=== PATIENT | female | born 1990 | race Caucasian/White ===

== ENCOUNTER 2016-03-26 02:18 | Emergency (ER) | payer OTHER, MEDICAID ==
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
--- NOTE | 2016-03-26 05:25 | EDDOCDS ---
Physician Documentation [facility] Name: Laura Brandon Age: 26 yrs Sex: Female : 1990 Arrival Date: 03/26/2016 Time: 02:18 Bed 7 Private MD: Disposition: 03/26/16 05:02 Discharged to Home/Self Care. Impression: Contusion of unspecified part of head. - Condition is Stable. - Discharge Instructions: Contusion, [id number]. - Medication Reconciliation, Local Pharmacy Hours, Work Release Form - 1 day form. - Follow up: Private Physician; When: Call to arrange an appointment; Reason: Recheck today's complaints. - Problem is new. - Symptoms have improved. Historical: - Allergies: No known drug Allergies; - Home Meds: 1. levothyroxine 200 mcg Oral tab 1 tab once daily 2. Paxil 10 mg Oral tab 1 tab once daily 3. control Unknown daily 4. 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 Patient uses alcohol Patient reports that she had two cups of beer. No barriers to communication noted, The patient speaks fluent Azerbaijani, Speaks appropriately for age. - Family history: Not pertinent. - : The pt / caregiver states he / she is not on anticoagulants. Home medication list is obtained from the patient. - Exposure Risk Screening:: None identified. 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 4 in. (162.56 cm); Pain 10/10; 05:24 BP 104 / 72; Pulse 84; Resp 18; Temp 97.1; Pulse Ox 100% on R/A; sls1 [place] Coma Score: 02:22 Eye Response: spontaneous(4). Verbal Response: oriented(5). Motor Response: obeys jmb commands(6). Total: 15. MDM: 02:54 CT Head Without Contrast Ordered. EDMS 02:54 CT Maxilofacial W/out Contrast Ordered. EDMS 03:24 Financial registration complete. hs2 04:10 [facility] Payment Agreement was scanned into [employer] and attached to record. hs2 Signatures: Dispatcher [employer] EDMS Zaira Drake RN RN sls1 Samm Shea, DO DO cs11 Lalo Salas RN RN jmb Nahed Davis, Reg Reg hs2 The chart was reviewed and I authenticate all verbal orders and agree with the evaluation and treatment provided.Attachments: 04:10 [facility] Payment Agreement hs2 MTDD
--- NOTE | 2016-03-28 06:25 | EDDOCDS ---
Physician Documentation [facility] Name: Laura Brandon Age: 26 yrs Sex: Female : 1990 Arrival Date: 03/26/2016 Time: 02:18 Bed 7 Private MD: Disposition: 03/26/16 05:02 Discharged to Home/Self Care. Impression: Contusion of unspecified part of head. - Condition is Stable. - Discharge Instructions: Contusion, [id number]. - Medication Reconciliation, Local Pharmacy Hours, Work Release Form - 1 day form. - Follow up: Private Physician; When: Call to arrange an appointment; Reason: Recheck today's complaints. - Problem is new. - Symptoms have improved. Historical: - Allergies: No known drug Allergies; - Home Meds: 1. levothyroxine 200 mcg Oral tab 1 tab once daily 2. Paxil 10 mg Oral tab 1 tab once daily 3. control Unknown daily 4. 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 Patient uses alcohol Patient reports that she had two cups of beer. No barriers to communication noted, The patient speaks fluent Malawian, Speaks appropriately for age. - Family history: Not pertinent. - : The pt / caregiver states he / she is not on anticoagulants. Home medication list is obtained from the patient. - Exposure Risk Screening:: None identified. 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 4 in. (162.56 cm); Pain 10/10; 05:24 BP 104 / 72; Pulse 84; Resp 18; Temp 97.1; Pulse Ox 100% on R/A; sls1 [place] Coma Score: 02:22 Eye Response: spontaneous(4). Verbal Response: oriented(5). Motor Response: obeys jmb commands(6). Total: 15. MDM: 02:54 CT Head Without Contrast Ordered. EDMS 02:54 CT Maxilofacial W/out Contrast Ordered. EDMS 03:24 Financial registration complete. hs2 04:10 [facility] Payment Agreement was scanned into MEDHOST and attached to record. hs2 08:58 T-Sheet-- Draft Copy was scanned into MEDHOST and attached to record. se 03/27 10:06 Radiology Report was scanned into MEDHOST and attached to record. gb Signatures: Dispatcher [employer] EDAK Anastasia Elliott, Reg Reg gb Zaira Drake RN RN sls1 Samm Shea, DO cs11 Lalo SalasRN RN jmb Nahed Davis, Reg Reg hs2 Sandy Aranda [facility] The chart was reviewed and I authenticate all verbal orders and agree with the evaluation and treatment provided.Attachments: 03/26 04:10 [facility] Payment Agreement hs2 08:58 T-Sheet-- Draft Copy [facility] Chart Complete MTDD
--- NOTE | 2016-03-28 06:25 | EDDOCDS ---
[facility]ation [facility] Name: Laura Brandon Age: 26 yrs Sex: Female : 1990 Arrival Date: 03/26/2016 Time: 02:18 Bed 7 Private MD: Disposition: 03/26/16 05:02 Discharged to Home/Self Care. Impression: Contusion of unspecified part of head. - Condition is Stable. - Discharge Instructions: Contusion, [id number]. - Medication Reconciliation, Local Pharmacy Hours, Work Release Form - 1 day form. - Follow up: Private Physician; When: Call to arrange an appointment; Reason: Recheck today's complaints. - Problem is new. - Symptoms have improved. Historical: - Allergies: No known drug Allergies; - Home Meds: 1. levothyroxine 200 mcg Oral tab 1 tab once daily 2. Paxil 10 mg Oral tab 1 tab once daily 3. control Unknown daily 4. 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 Patient uses alcohol Patient reports that she had two cups of beer. No barriers to communication noted, The patient speaks fluent Gibraltarian, Speaks appropriately for age. - Family history: Not pertinent. - : The pt / caregiver states he / she is not on anticoagulants. Home medication list is obtained from the patient. - Exposure Risk Screening:: None identified. 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 4 in. (162.56 cm); Pain 10/10; 05:24 BP 104 / 72; Pulse 84; Resp 18; Temp 97.1; Pulse Ox 100% on R/A; sls1 [place] Coma Score: 02:22 Eye Response: spontaneous(4). Verbal Response: oriented(5). Motor Response: obeys jmb commands(6). Total: 15. MDM: 02:54 CT Head Without Contrast Ordered. EDMS 02:54 CT Maxilofacial W/out Contrast Ordered. EDMS 03:24 Financial registration complete. hs2 04:10 [facility] Payment Agreement was scanned into MEDHOST and attached to record. hs2 08:58 T-Sheet-- Draft Copy was scanned into MEDHOST and attached to record. se 03/27 10:06 Radiology Report was scanned into MEDHOST and attached to record. gb Signatures: Dispatcher [employer] EDWV Anastasia Elliott, Reg Reg gb Zaira Drake RN RN sls1 Samm Shea, DO cs11 Lalo SalasRN RN jmb Nahed Davis, Reg Reg hs2 Sandy Aranda [facility] The chart was reviewed and I authenticate all verbal orders and agree with the evaluation and treatment provided.Attachments: 03/26 04:10 [facility] Payment Agreement hs2 08:58 T-Sheet-- Draft Copy [facility] Chart Complete MTDD
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
== END 2016-03-26 05:14 | disposition home or self-care (01) ==
LOC: M ED 02:18
DX: S00.83XA Contusion of other part of head, initial encounter (principal); W50.0XXA Accidental hit or strike by another person, initial encounter; Y92.410 Unspecified street and highway as the place of occurrence of the external cause; Y93.89 Activity, other specified; Y99.9 Unspecified external cause status; E03.9 Hypothyroidism, unspecified; J45.909 Unspecified asthma, uncomplicated; R45.4 Irritability and anger; Z79.3 Long term (current) use of hormonal contraceptives; Z79.899 Other long term (current) drug therapy

== ENCOUNTER → 2017-07-05 | Outpatient (CLI) | payer OTHER ==
[2017-07-05 08:32] LABS: GLUCOSE, FASTING 123 MG/DL (LESS THAN 95)
[2017-07-05 08:57] LABS: 1 HR GLUCOSE 240 MG/DL (LESS THAN 180)
[2017-07-05 10:09] LABS: 2 HR GLUCOSE 185 MG/DL (LESS THAN 155)
[2017-07-05 11:16] LABS: 3 HR GLUCOSE 76 MG/DL (LESS THAN 140)
== END ==
LOC: M LAB 07:10
DX: Z36.89 Encounter for other specified antenatal screening (principal); Z3A.00 Weeks of gestation of pregnancy not specified
CPT/HCPCS: 82951

== ENCOUNTER → 2017-07-23 | Outpatient (REF) | payer OTHER, MEDICAID | LOC: M LAB REF 17:34 | DX: O99.211 Obesity complicating pregnancy, first trimester (principal); Z3A.00 Weeks of gestation of pregnancy not specified | CPT/HCPCS: 87086 ==

== ENCOUNTER → 2017-09-05 | Outpatient (CLI) | payer OTHER ==
[2017-09-05 09:49] LABS: ESTIMATED AVERAGE GLUCOSE 114 MG/DL (60-110); HEMOGLOBIN A1c 5.6 %
[2017-09-05 10:56] LABS: FREE T4 0.74 NG/DL (0.76-1.46)
== END ==
LOC: M LAB 08:58
DX: Z36.89 Encounter for other specified antenatal screening (principal); Z3A.00 Weeks of gestation of pregnancy not specified
CPT/HCPCS: 84443

== ENCOUNTER → 2017-09-14 | Outpatient (CLI) | payer OTHER, MEDICAID | LOC: M RAD 10:06 | DX: Z34.82 Encounter for supervision of other normal pregnancy, second trimester (principal) | CPT/HCPCS: 76811 ==

== ENCOUNTER → 2017-10-02 | Outpatient (CLI) | payer OTHER | LOC: M RAD 11:07 | DX: Z34.82 Encounter for supervision of other normal pregnancy, second trimester (principal); Z36.89 Encounter for other specified antenatal screening; Z3A.21 21 weeks gestation of pregnancy | CPT/HCPCS: 76816 ==

== ENCOUNTER → 2017-11-14 | Outpatient (CLI) | payer OTHER ==
[2017-11-14 11:45] LABS: HEMATOCRIT 32.4 % (36.0-47.0); HEMOGLOBIN 10.8 g/dl (12.0-15.5); MEAN CORPUSCULAR HEMOGLOBIN 28.3 pg (27.0-33.0); MEAN CORPUSCULAR HGB CONC 33.3 g/dl (32.0-36.5); MEAN CORPUSCULAR VOLUME 84.8 fl (80.0-96.0); PLATELET COUNT, AUTOMATED 273 10^3/uL (150-450); RED BLOOD COUNT 3.82 10^6/uL (4.00-5.40); RED CELL DISTRIBUTION WIDTH 12.6 % (11.5-14.5); WHITE BLOOD COUNT 7.1 10^3/uL (4.0-10.0)
[2017-11-15 09:03] LABS: RH ONLY RHOGAM 1 1
== END ==
LOC: M LAB 10:58
DX: O24.112 Pre-existing type 2 diabetes mellitus, in pregnancy, second trimester (principal); Z3A.00 Weeks of gestation of pregnancy not specified
CPT/HCPCS: 85027

== ENCOUNTER → 2017-12-18 | Outpatient (CLI) | payer OTHER | LOC: M RAD 12:16 | DX: O24.113 Pre-existing type 2 diabetes mellitus, in pregnancy, third trimester (principal); Z3A.34 34 weeks gestation of pregnancy | CPT/HCPCS: 76819 ==

== ENCOUNTER → 2017-12-27 | Outpatient (CLI) | payer OTHER, MEDICAID ==
[2017-12-27 11:30] LABS: ESTIMATED AVERAGE GLUCOSE 114 MG/DL (60-110); FREE T4 0.74 NG/DL (0.76-1.46); HEMOGLOBIN A1c 5.6 %
== END ==
LOC: M LAB 08:40
DX: O24.313 Unspecified pre-existing diabetes mellitus in pregnancy, third trimester (principal)
CPT/HCPCS: 84443

== ENCOUNTER → 2018-01-02 | Outpatient (CLI) | payer OTHER | LOC: M RAD 16:24 | DX: O24.113 Pre-existing type 2 diabetes mellitus, in pregnancy, third trimester (principal); Z3A.34 34 weeks gestation of pregnancy | CPT/HCPCS: 76815 ==

== ENCOUNTER → 2018-01-10 | Outpatient (REF) | payer OTHER | LOC: M LAB REF 17:08 | DX: O24.113 Pre-existing type 2 diabetes mellitus, in pregnancy, third trimester (principal); Z3A.00 Weeks of gestation of pregnancy not specified; E11.9 Type 2 diabetes mellitus without complications | CPT/HCPCS: 87186 ==

== ENCOUNTER → 2018-01-11 | Outpatient (CLI) | payer OTHER | LOC: M RAD 12:05 | DX: Z36.9 Encounter for antenatal screening, unspecified (principal); Z3A.37 37 weeks gestation of pregnancy | CPT/HCPCS: 76819 ==

== ENCOUNTER 2018-01-31 14:25 | Inpatient (IN) | payer OTHER ==
[2018-01-31] MEDS ORDERED: LR 1,000 ML IV (16:03)
[2018-01-31 16:53] LABS: HEMATOCRIT 35.6 % (36.0-47.0); HEMOGLOBIN 11.7 g/dl (12.0-15.5); MEAN CORPUSCULAR HEMOGLOBIN 27.3 pg (27.0-33.0); MEAN CORPUSCULAR HGB CONC 32.9 g/dl (32.0-36.5); PLATELET COUNT, AUTOMATED 268 10^3/uL (150-450); RED BLOOD COUNT 4.29 10^6/uL (4.00-5.40); RED CELL DISTRIBUTION WIDTH 13.4 % (11.5-14.5); WHITE BLOOD COUNT 8.5 10^3/uL (4.0-10.0)
[2018-01-31] MEDS: LACTATED RINGER'S 1000 ML IV (20:30)
[2018-01-31] MEDS: BICITRA 30ML SOLN UDC PO (20:30)
[2018-01-31] MEDS ORDERED: KETOROLAC 60 MG/2 ML VIAL (J1885) As Ordered (20:55)
[2018-01-31] MEDS ORDERED: OXYTOCIN INJ 10 UNITS/ML VIAL (J2590) As Ordered (20:55)
[2018-01-31] MEDS ORDERED: ONDANSETRON 4MG/2ML VIAL (J2405) As Ordered (20:55)
[2018-01-31] MEDS ORDERED: MORPHINE PRES-FREE INJ 10 MG/10 ML VIAL (J2274) As Ordered (20:55)
[2018-01-31] MEDS ORDERED: ONDANSETRON 4MG/2ML VIAL (J2405) IV ×3 (21:03→22:30)
[2018-01-31] MEDS ORDERED: METOCLOPRAMIDE INJ 10MG/2ML VIAL (J2765) IV ×2 (21:03→22:30)
[2018-01-31] MEDS ORDERED: NALOXONE INJ 0.4 MG/1 ML VIAL (J2310) IV ×2 (21:03)
[2018-01-31] MEDS ORDERED: PHENYLephrine HCL 500 MCG/5 ML (100MCG/ML) SYRINGE (J2370) As Ordered (21:09)
[2018-01-31] MEDS ORDERED: ePHEDrine SULFATE 25 MG/5 ML(5MG/ML) SYRINGE As Ordered (21:15)
[2018-01-31 22:09] LABS: BEDSIDE GLUCOSE 74 MG/DL (70-105)
[2018-01-31] MEDS ORDERED: MEASLES,MUMPS,RUBELLA VACCINE INJ (MMR-II) (90707) SC (22:15)
[2018-01-31] MEDS ORDERED: DOCUSATE SODIUM 100 MG CAP PO (22:15)
[2018-01-31] MEDS: LR 1,000 ML IV ×2 (22:15→22:30)
[2018-01-31] MEDS ORDERED: RHOGAM 300 MCG (1500 IU) INJ (J2790) IM (22:15)
[2018-01-31] MEDS ORDERED: PERCOCET 5MG/325MG TAB PO ×3 (22:15→22:30)
[2018-01-31] MEDS ORDERED: fentaNYL 100 MCG/2 ML INJECTION (J3010) IV (22:30)
[2018-01-31] MEDS ORDERED: GLUCAGON FOR INJ 1 MG VIAL (J1610) SC (22:30)
[2018-01-31] MEDS ORDERED: MEPERIDINE INJ 25 MG/ML VIAL (J2175) IV (22:30)
[2018-01-31] MEDS ORDERED: GLUCOSE 4 GM CHEW TABLET PO (22:30)
[2018-01-31] MEDS ORDERED: DEXTROSE 50% 50 ML SYRINGE IV (22:30)
[2018-02-01] MEDS: NALBUPHINE HCL 10 MG/ML AMP (J2300) IV (01:47)
[2018-02-01] MEDS: LR 1,000 ML IV ×2 (01:47→05:17)
[2018-02-01 02:19] LABS: BEDSIDE GLUCOSE 67 MG/DL (70-105)
[2018-02-01] MEDS: KETOROLAC 30 MG/ML VIAL (J1885) IV ×3 (02:37→16:16)
[2018-02-01] MEDS: LEVOTHYROXINE 100MCG TABLET (0.1MG) PO (05:17)
[2018-02-01 06:58] LABS: HEMATOCRIT 32.5 % (36.0-47.0); HEMOGLOBIN 10.6 g/dl (12.0-15.5); MEAN CORPUSCULAR HEMOGLOBIN 27.5 pg (27.0-33.0); MEAN CORPUSCULAR HGB CONC 32.6 g/dl (32.0-36.5); MEAN CORPUSCULAR VOLUME 84.4 fl (80.0-96.0); PLATELET COUNT, AUTOMATED 221 10^3/uL (150-450); RED BLOOD COUNT 3.85 10^6/uL (4.00-5.40); RED CELL DISTRIBUTION WIDTH 13.5 % (11.5-14.5); WHITE BLOOD COUNT 8.7 10^3/uL (4.0-10.0)
[2018-02-01 07:22] LABS: BEDSIDE GLUCOSE 61 MG/DL (70-105)
[2018-02-01] MEDS: HumaLOG INSULIN (NovoLOG) PER UNIT SC ×3 (07:30→17:30)
[2018-02-01] MEDS: PRENATAL VITAMINS CHEWABLE TABLET PO (08:51)
[2018-02-01] MEDS: INFLUENZA QUADRIVALENT PF VACCINE 0.5ML SYRINGE (90686) IM (08:51)
[2018-02-01 13:04] LABS: BEDSIDE GLUCOSE 115 MG/DL (70-105)
[2018-02-01 15:42] LABS: BEDSIDE GLUCOSE 99 MG/DL (70-105)
[2018-02-01 17:34] LABS: BEDSIDE GLUCOSE 87 MG/DL (70-105)
[2018-02-01 21:11] LABS: BEDSIDE GLUCOSE 140 MG/DL (70-105)
[2018-02-02] MEDS: IBUPROFEN 800 MG TAB PO ×2 (00:35→06:38)
[2018-02-02] MEDS: LEVOTHYROXINE 100MCG TABLET (0.1MG) PO (06:24)
[2018-02-02 06:55] LABS: BEDSIDE GLUCOSE 90 MG/DL (70-105)
[2018-02-02] MEDS: HumaLOG INSULIN (NovoLOG) PER UNIT SC (07:05)
[2018-02-02] MEDS: PRENATAL VITAMINS CHEWABLE TABLET PO (09:28)
== END 2018-02-02 10:22 | disposition home or self-care (01) | DRG 540 ==
LOC: M LDO 14:25 → M OBS 02-01 00:28 → M LDI 15:59
PROVIDERS: Specialist
PROC: 10D00Z1 Extraction of Products of Conception, Low, Open Approach (ICD-10-PCS; principal; 2018-01-31 20:55)
PROC: 0UB70ZZ Excision of Bilateral Fallopian Tubes, Open Approach (ICD-10-PCS; 2018-01-31 20:55)
DX: O41.03X0 Oligohydramnios, third trimester, not applicable or unspecified (principal); O24.12 Pre-existing type 2 diabetes mellitus, in childbirth; E11.65 Type 2 diabetes mellitus with hyperglycemia; Z3A.38 38 weeks gestation of pregnancy; O34.211 Maternal care for low transverse scar from previous cesarean delivery; O36.8130 Decreased fetal movements, third trimester, not applicable or unspecified; O99.344 Other mental disorders complicating childbirth; F32.9 Major depressive disorder, single episode, unspecified; F41.9 Anxiety disorder, unspecified; F63.81 Intermittent explosive disorder; O99.284 Endocrine, nutritional and metabolic diseases complicating childbirth; E03.9 Hypothyroidism, unspecified; O99.52 Diseases of the respiratory system complicating childbirth; J45.909 Unspecified asthma, uncomplicated; O99.824 Streptococcus B carrier state complicating childbirth; Z79.4 Long term (current) use of insulin; Z30.2 Encounter for sterilization; Z37.0 Single live birth

== ENCOUNTER → 2018-01-31 | Outpatient (CLI) | payer OTHER | LOC: M RAD 13:08 | DX: O24.113 Pre-existing type 2 diabetes mellitus, in pregnancy, third trimester (principal); Z3A.40 40 weeks gestation of pregnancy | CPT/HCPCS: 76815 ==

== ENCOUNTER → 2018-03-27 | Outpatient (REF) | payer OTHER ==
[~2018-03-27] MED LIST: IBUP1TAB7 PO; INSUN SC; INSUR SC; LEVO125T4 PO; METF500T13 PO; OXYC1TAB23 PO; TUMS500C PO; VENTAER INH
== END ==
LOC: M SFHCLERA 19:25
PROVIDERS: ATTEND Physician Assistant
DX: J02.9 Acute pharyngitis, unspecified (principal)

== ENCOUNTER → 2018-08-06 | Outpatient (CLI) | payer OTHER ==
--- NOTE | 2018-08-08 12:16 | SLEEPHOME ---
DATE OF PROCEDURE: 08/06/2018 ORDERED BY: Odalys Martinez NP Diagnostic home sleep testing was performed due to concern for the obstructive sleep apnea syndrome in this patient with a history of snoring, irregular breathing of sleep, and excessive daytime somnolence who has comorbidities of posttraumatic stress disorder (PTSD), obesity, and diabetes. For testing a nocturnal T3 respiratory monitoring device was used. Continuous record was made of pulse, oxygen saturation, airflow, chest and abdominal strain and body position. 10 hours and 59 minutes of data were reviewed; 6 hours and 55 minutes were marked as time in bed. During the interval marked time in bed there was 30 respiratory events identified of 10 seconds in duration or greater for a respiratory event index of 4.3. The events were primarily obstructive; 7 central and mixed apneas were seen. Events were more frequent in the supine posture. Baseline pulse rate was 82. Pulse rate ranged 61-117. Baseline saturation 94%. Saturations fell as low as 89%. Testing was performed in both the supine and nonsupine positions. IMPRESSION: Abnormal home sleep testing with repetitive respiratory events, minimal oxygen desaturation and a respiratory event index of 4.3 is suggestive of the obstructive sleep apnea syndrome. RECOMMENDATIONS: The event frequency was low and the respiratory events identified were more frequent in the supine posture. Therefore, sleep position retraining for avoidance of the supine posture is recommended. Should the patient's symptoms persist a formal in laboratory nocturnal polysomnography is more sensitive to identify mild disease.
== END ==
LOC: M SLEEP HO 11:23
PROVIDERS: ATTEND Nurse Practitioner Adult Health
DX: R06.83 Snoring (principal); R40.0 Somnolence

== ENCOUNTER → 2019-01-08 | Outpatient (REF) | payer OTHER, MEDICAID ==
[2019-01-08 14:01] LABS: ALBUMIN 3.4 GM/DL (3.2-5.2); ALT/SGPT 163 U/L (12-78); BILIRUBIN,TOTAL 0.5 MG/DL (0.2-1.0); BLOOD UREA NITROGEN 6 MG/DL (7-18); CALCIUM LEVEL 8.4 MG/DL (8.5-10.1); CARBON DIOXIDE LEVEL 28 MEQ/L (21-32); CHLORIDE LEVEL 104 MEQ/L (98-107); CHOLESTEROL LEVEL 173 MG/DL (<200); CHOLESTEROL RISK RATIO 5.406 (<5); CREATININE FOR GFR 0.64 MG/DL (0.55-1.30); FREE T4 0.73 NG/DL (0.76-1.46); GLOMERULAR FILTRATION RATE > 60.0 (>60); GLUCOSE, FASTING 216 MG/DL (70-100); HDL CHOLESTEROL 32 MG/DL (>40); LDL CHOLESTEROL 93 MG/DL (<100); NON-HDL-C 141 MG/DL; POTASSIUM SERUM 4.1 MEQ/L (3.5-5.1); SODIUM LEVEL 138 MEQ/L (136-145); TOTAL PROTEIN 6.7 GM/DL (6.4-8.2); TRIGLYCERIDES LEVEL 239 MG/DL (<150)
[2019-01-08 14:50] LABS: HEMOGLOBIN A1c 9.1 %
== END ==
LOC: M LAB REF 12:26
PROVIDERS: ATTEND Family Medicine
DX: E11.9 Type 2 diabetes mellitus without complications (principal); E03.8 Other specified hypothyroidism

== ENCOUNTER → 2019-03-31 | Outpatient (REF) | payer OTHER, MEDICAID ==
[2019-03-31 13:50] LABS: ALBUMIN 3.7 GM/DL (3.2-5.2); ALT/SGPT 105 U/L (12-78); BILIRUBIN,TOTAL 0.5 MG/DL (0.2-1.0); BLOOD UREA NITROGEN 11 MG/DL (7-18); CALCIUM LEVEL 8.5 MG/DL (8.5-10.1); CARBON DIOXIDE LEVEL 25 MEQ/L (21-32); CHLORIDE LEVEL 106 MEQ/L (98-107); CHOLESTEROL LEVEL 159 MG/DL (<200); CHOLESTEROL RISK RATIO 4.297 (<5); CREATININE FOR GFR 0.57 MG/DL (0.55-1.30); FREE T4 0.77 NG/DL (0.76-1.46); GLOMERULAR FILTRATION RATE > 60.0 (>60); GLUCOSE, FASTING 159 MG/DL (70-100); HDL CHOLESTEROL 37 MG/DL (>40); LDL CHOLESTEROL 96 MG/DL (<100); NON-HDL-C 122 MG/DL; POTASSIUM SERUM 4.2 MEQ/L (3.5-5.1); SODIUM LEVEL 138 MEQ/L (136-145); TOTAL PROTEIN 7.8 GM/DL (6.4-8.2); TRIGLYCERIDES LEVEL 130 MG/DL (<150)
[2019-03-31 14:24] LABS: HEMOGLOBIN A1c 8.4 %
== END ==
LOC: M LAB REF 13:12
PROVIDERS: ATTEND Family Medicine
DX: E03.8 Other specified hypothyroidism (principal); E11.9 Type 2 diabetes mellitus without complications

== ENCOUNTER → 2019-05-01 | Outpatient (REF) | payer OTHER, MEDICAID ==
[2019-05-01 18:02] LABS: FREE T4 0.86 NG/DL (0.76-1.46); THYROID STIMULATING HORMONE 5.19 uIU/ML (0.358-3.740)
== END ==
LOC: M LAB REF 16:33
PROVIDERS: ATTEND Physician Assistant
DX: E03.8 Other specified hypothyroidism (principal)

== ENCOUNTER → 2019-06-25 | Outpatient (REF) | payer OTHER, MEDICAID ==
[2019-06-25 12:57] LABS: ALT/SGPT 60 U/L (12-78); BLOOD UREA NITROGEN 9 MG/DL (7-18); CARBON DIOXIDE LEVEL 29 MEQ/L (21-32); CHLORIDE LEVEL 104 MEQ/L (98-107); CREATININE FOR GFR 0.56 MG/DL (0.55-1.30); GLOMERULAR FILTRATION RATE > 60.0 (>60); GLUCOSE, FASTING 133 MG/DL (70-100); POTASSIUM SERUM 3.9 MEQ/L (3.5-5.1); SODIUM LEVEL 139 MEQ/L (136-145)
[2019-06-25 12:58] LABS: ALBUMIN 3.7 GM/DL (3.2-5.2); BILIRUBIN,TOTAL 0.4 MG/DL (0.2-1.0); FREE T4 0.76 NG/DL (0.76-1.46); TOTAL PROTEIN 7.8 GM/DL (6.4-8.2)
[2019-06-25 13:26] LABS: HEMOGLOBIN A1c 7.6 %
== END ==
LOC: M LAB REF 12:25
PROVIDERS: ATTEND Physician Assistant
DX: E03.8 Other specified hypothyroidism (principal); E11.65 Type 2 diabetes mellitus with hyperglycemia

== ENCOUNTER → 2019-09-25 | Outpatient (REF) | payer OTHER, MEDICAID ==
[2019-09-25 12:36] LABS: BASO % 0.7 % (0.0-1.0); EOS # 0.1 10^3/uL (0.0-0.5); HEMATOCRIT 38.8 % (36.0-47.0); HEMOGLOBIN 12.1 g/dl (12.0-15.5); LYMPH # 1.2 10^3/uL (1.5-5.0); LYMPH % 20.4 % (24.0-44.0); MEAN CORPUSCULAR HEMOGLOBIN 26.1 pg (27.0-33.0); MEAN CORPUSCULAR HGB CONC 31.2 g/dl (32.0-36.5); MEAN CORPUSCULAR VOLUME 83.6 fl (80.0-96.0); MONO # 0.4 10^3/uL (0.0-0.8); MONO % 6.9 % (0.0-5.0); NEUTROPHILS # 4.2 10^3/uL (1.5-8.5); NEUTROPHILS % 69.5 % (36.0-66.0); PLATELET COUNT, AUTOMATED 322 10^3/uL (150-450); RED BLOOD COUNT 4.64 10^6/uL (4.00-5.40)
[2019-09-25 12:52] LABS: TOTAL 25(OH) VITAMIN D 19.4 NG/ML (30.0-100.0)
[2019-09-25 12:57] LABS: ALBUMIN 3.7 GM/DL (3.2-5.2); ALT/SGPT 84 U/L (12-78); BILIRUBIN,TOTAL 0.4 MG/DL (0.2-1.0); BLOOD UREA NITROGEN 12 MG/DL (7-18); CARBON DIOXIDE LEVEL 28 MEQ/L (21-32); CHLORIDE LEVEL 103 MEQ/L (98-107); CHOLESTEROL LEVEL 162 MG/DL (<200); CHOLESTEROL RISK RATIO 4.909 (<5); CREATININE FOR GFR 0.63 MG/DL (0.55-1.30); FREE T4 0.89 NG/DL (0.76-1.46); GLOMERULAR FILTRATION RATE > 60.0 (>60); GLUCOSE, FASTING 193 MG/DL (70-100); HDL CHOLESTEROL 33 MG/DL (>40); LDL CHOLESTEROL 96 MG/DL (<100); NON-HDL-C 129 MG/DL; POTASSIUM SERUM 4.1 MEQ/L (3.5-5.1); SODIUM LEVEL 136 MEQ/L (136-145); TOTAL PROTEIN 7.6 GM/DL (6.4-8.2); TRIGLYCERIDES LEVEL 165 MG/DL (<150)
[2019-09-25 13:23] LABS: HEMOGLOBIN A1c 8.9 %
== END ==
LOC: M LAB REF 11:44
PROVIDERS: ATTEND Physician Assistant
DX: F41.8 Other specified anxiety disorders (principal); E03.8 Other specified hypothyroidism; E11.65 Type 2 diabetes mellitus with hyperglycemia

== ENCOUNTER → 2019-12-26 | Outpatient (REF) | payer OTHER, MEDICAID ==
[2019-12-26 12:41] LABS: BASO % 0.6 % (0.0-1.0); EOS # 0.1 10^3/uL (0.0-0.5); EOS % 2.2 % (0.0-3.0); HEMATOCRIT 38.2 % (36.0-47.0); HEMOGLOBIN 12.2 g/dl (12.0-15.5); LYMPH # 1.2 10^3/uL (1.5-5.0); LYMPH % 21.7 % (24.0-44.0); MEAN CORPUSCULAR HEMOGLOBIN 26.5 pg (27.0-33.0); MEAN CORPUSCULAR HGB CONC 31.9 g/dl (32.0-36.5); MEAN CORPUSCULAR VOLUME 82.9 fl (80.0-96.0); MONO # 0.4 10^3/uL (0.0-0.8); MONO % 6.6 % (0.0-5.0); NEUTROPHILS # 3.7 10^3/uL (1.5-8.5); NEUTROPHILS % 68.5 % (36.0-66.0); PLATELET COUNT, AUTOMATED 323 10^3/uL (150-450); RED BLOOD COUNT 4.61 10^6/uL (4.00-5.40); WHITE BLOOD COUNT 5.4 10^3/uL (4.0-10.0)
[2019-12-26 12:54] LABS: HEMOGLOBIN A1c 7.5 %
[2019-12-26 13:19] LABS: ALBUMIN 3.4 GM/DL (3.2-5.2); ALT/SGPT 59 U/L (12-78); BILIRUBIN,TOTAL 0.3 MG/DL (0.2-1.0); BLOOD UREA NITROGEN 10 MG/DL (7-18); CALCIUM LEVEL 8.9 MG/DL (8.5-10.1); CARBON DIOXIDE LEVEL 29 MEQ/L (21-32); CHLORIDE LEVEL 103 MEQ/L (98-107); CREATININE FOR GFR 0.58 MG/DL (0.55-1.30); FREE T4 0.88 NG/DL (0.76-1.46); GLOMERULAR FILTRATION RATE > 60.0 (>60); GLUCOSE, FASTING 176 MG/DL (70-100); POTASSIUM SERUM 4.4 MEQ/L (3.5-5.1); SODIUM LEVEL 137 MEQ/L (136-145); TOTAL 25(OH) VITAMIN D 15.8 NG/ML (30.0-100.0); TOTAL PROTEIN 7.1 GM/DL (6.4-8.2)
== END ==
LOC: M LAB REF 11:21
PROVIDERS: ATTEND Physician Assistant
DX: Z79.4 Long term (current) use of insulin (principal); R74.8 Abnormal levels of other serum enzymes; E55.9 Vitamin D deficiency, unspecified; E11.65 Type 2 diabetes mellitus with hyperglycemia

== ENCOUNTER → 2020-04-02 | Outpatient (REF) | payer OTHER, MEDICAID ==
[2020-04-02 16:37] LABS: HEMOGLOBIN 11.7 g/dl (12.0-15.5); MEAN CORPUSCULAR HEMOGLOBIN 26.1 pg (27.0-33.0); MEAN CORPUSCULAR HGB CONC 31.6 g/dl (32.0-36.5); MEAN CORPUSCULAR VOLUME 82.4 fl (80.0-96.0); PLATELET COUNT, AUTOMATED 352 10^3/uL (150-450); RED BLOOD COUNT 4.49 10^6/uL (4.00-5.40); WHITE BLOOD COUNT 5.5 10^3/uL (4.0-10.0)
[2020-04-02 17:07] LABS: HEMOGLOBIN A1c 7.8 %
[2020-04-02 17:09] LABS: ALBUMIN 3.6 GM/DL (3.2-5.2); ALT/SGPT 43 U/L (12-78); BILIRUBIN,TOTAL 0.4 MG/DL (0.2-1.0); BLOOD UREA NITROGEN 8 MG/DL (7-18); CALCIUM LEVEL 8.6 MG/DL (8.5-10.1); CARBON DIOXIDE LEVEL 26 MEQ/L (21-32); CHLORIDE LEVEL 106 MEQ/L (98-107); CHOLESTEROL LEVEL 156 MG/DL (<200); CHOLESTEROL RISK RATIO 4.457 (<5); CREATININE FOR GFR 0.57 MG/DL (0.55-1.30); GLOMERULAR FILTRATION RATE > 60.0 (>60); GLUCOSE, FASTING 147 MG/DL (70-100); HDL CHOLESTEROL 35 MG/DL (>40); LDL CHOLESTEROL 93 MG/DL (<100); NON-HDL-C 121 MG/DL; POTASSIUM SERUM 4.8 MEQ/L (3.5-5.1); SODIUM LEVEL 138 MEQ/L (136-145); TOTAL PROTEIN 6.9 GM/DL (6.4-8.2); TRIGLYCERIDES LEVEL 138 MG/DL (<150)
[2020-04-02 17:18] LABS: TOTAL 25(OH) VITAMIN D 13.3 NG/ML (30.0-100.0)
== END ==
LOC: M LAB REF 15:52
PROVIDERS: ATTEND Physician Assistant
DX: E11.65 Type 2 diabetes mellitus with hyperglycemia (principal); E55.9 Vitamin D deficiency, unspecified

== ENCOUNTER → 2020-08-10 | Outpatient (REF) | payer OTHER, MEDICAID ==
[2020-08-10 16:29] LABS: BASO % 0.7 % (0.0-1.0); EOS # 0.1 10^3/uL (0.0-0.5); HEMATOCRIT 37.7 % (36.0-47.0); HEMOGLOBIN 12.2 g/dl (12.0-15.5); LYMPH # 1.1 10^3/uL (1.5-5.0); LYMPH % 19.2 % (24.0-44.0); MEAN CORPUSCULAR HEMOGLOBIN 25.7 pg (27.0-33.0); MEAN CORPUSCULAR HGB CONC 32.4 g/dl (32.0-36.5); MEAN CORPUSCULAR VOLUME 79.4 fl (80.0-96.0); MONO # 0.4 10^3/uL (0.0-0.8); MONO % 6.8 % (2.0-8.0); NEUTROPHILS # 4.2 10^3/uL (1.5-8.5); NEUTROPHILS % 70.8 % (36.0-66.0); PLATELET COUNT, AUTOMATED 366 10^3/uL (150-450); RED BLOOD COUNT 4.75 10^6/uL (4.00-5.40); WHITE BLOOD COUNT 5.9 10^3/uL (4.0-10.0)
[2020-08-10 16:59] LABS: ALBUMIN 3.6 GM/DL (3.2-5.2); ALT/SGPT 53 U/L (12-78); BILIRUBIN,TOTAL 0.4 MG/DL (0.2-1.0); BLOOD UREA NITROGEN 7 MG/DL (7-18); CALCIUM LEVEL 8.8 MG/DL (8.5-10.1); CARBON DIOXIDE LEVEL 29 MEQ/L (21-32); CHLORIDE LEVEL 104 MEQ/L (98-107); CHOLESTEROL LEVEL 166 MG/DL (<200); CHOLESTEROL RISK RATIO 4.742 (<5); GLOMERULAR FILTRATION RATE > 60.0 (>60); GLUCOSE, FASTING 169 MG/DL (70-100); HDL CHOLESTEROL 35 MG/DL (>40); IRON (FE) 41 UG/DL (50-170); LDL CHOLESTEROL 98 MG/DL (<100); NON-HDL-C 131 MG/DL; POTASSIUM SERUM 4.6 MEQ/L (3.5-5.1); SODIUM LEVEL 138 MEQ/L (136-145); THYROID STIMULATING HORMONE 0.718 uIU/ML (0.358-3.740); TOTAL PROTEIN 7.1 GM/DL (6.4-8.2); TRIGLYCERIDES LEVEL 166 MG/DL (<150)
== END ==
LOC: M LAB REF 15:57
PROVIDERS: ATTEND Family Medicine Addiction Medicine
DX: D64.9 Anemia, unspecified (principal); E11.65 Type 2 diabetes mellitus with hyperglycemia; E55.9 Vitamin D deficiency, unspecified; E03.9 Hypothyroidism, unspecified

== ENCOUNTER → 2021-05-11 | Outpatient (CLI) | payer OTHER | LOC: M RAD 12:30 | PROVIDERS: ATTEND Physician Assistant | DX: E03.9 Hypothyroidism, unspecified (principal) ==

== ENCOUNTER → 2021-11-23 | Outpatient (CLI) | payer OTHER, MEDICAID | LOC: M WHC 15:08 | PROVIDERS: ATTEND Specialist | DX: N92.6 Irregular menstruation, unspecified (principal); Z97.5 Presence of (intrauterine) contraceptive device ==

== ENCOUNTER → 2021-12-05 | Outpatient (CLI) | payer OTHER, MEDICAID ==
[~2021-12-05] MED LIST changes: +ADME100I2 SC; +BASA100I SC; +FLUO20CA22 PO; +LAMO200T3 PO; +TRUL10IN SC; +VITA1CHW8 PO
[2021-12-05 13:15] LABS: ALBUMIN 3.7 GM/DL (3.2-5.2); ALT/SGPT 69 U/L (12-78); BILIRUBIN,TOTAL 0.6 MG/DL (0.2-1.0); BLOOD UREA NITROGEN 9 MG/DL (7-18); CALCIUM LEVEL 9.6 MG/DL (8.5-10.1); CARBON DIOXIDE LEVEL 30 MEQ/L (21-32); CHLORIDE LEVEL 100 MEQ/L (98-107); CHOLESTEROL LEVEL 180 MG/DL (<200); CHOLESTEROL RISK RATIO 5.625 (<5); CREATININE FOR GFR 0.63 MG/DL (0.55-1.30); GLOMERULAR FILTRATION RATE > 60.0 (>60); GLUCOSE, FASTING 180 MG/DL (70-100); HDL CHOLESTEROL 32 MG/DL (>40); LDL CHOLESTEROL 88 MG/DL (<100); NON-HDL-C 148 MG/DL; POTASSIUM SERUM 4.5 MEQ/L (3.5-5.1); SODIUM LEVEL 134 MEQ/L (136-145); TOTAL PROTEIN 7.4 GM/DL (6.4-8.2); TRIGLYCERIDES LEVEL 300 MG/DL (<150)
[2021-12-05 14:35] LABS: TOTAL 25(OH) VITAMIN D 21.7 NG/ML (30.0-100.0)
[2021-12-05 15:15] LABS: MALB URINE SIEMENS 10.6 MG/L; MAU/CREAT RATIO 8.2 MCG/MG (0.0-30.0)
[2021-12-05 15:34] LABS: HEMOGLOBIN A1c 8.4 %
== END ==
LOC: M WUC 09:16
PROVIDERS: ATTEND Internal Medicine Endocrinology, Diabetes & Metabolism
DX: E11.65 Type 2 diabetes mellitus with hyperglycemia (principal); E78.2 Mixed hyperlipidemia

== ENCOUNTER → 2021-12-12 | Outpatient (CLI) | payer MEDICAID, OTHER | LOC: M LABSMTC 10:24 | PROVIDERS: ATTEND Anesthesiology | DX: Z01.818 Encounter for other preprocedural examination (principal) ==

== ENCOUNTER → 2021-12-12 | Outpatient (CLI) | payer OTHER, MEDICAID ==
[~2021-12-12] MED LIST changes: +IBUP-1022 PO
== END ==
LOC: M PLALAB 09:59
DX: R00.0 Tachycardia, unspecified (principal)

== ENCOUNTER 2021-12-16 08:04 | Day surgery (SDC) | payer OTHER ==
[~2021-12-16] VITALS: Ht 162.6 cm; Wt 129.9 kg
[~2021-12-16 08:04] MED LIST changes: -IBUP-1022 PO; +LR 1,000 ML IV SCH; +ceFAZolin SOD 2 GM in IV 1 EA IV ONE
[2021-12-16 08:44] LABS: HEMATOCRIT 37.9 % (36.0-47.0); HEMOGLOBIN 12.6 g/dl (12.0-15.5); MEAN CORPUSCULAR HEMOGLOBIN 27.6 pg (27.0-33.0); MEAN CORPUSCULAR HGB CONC 33.2 g/dl (32.0-36.5); MEAN CORPUSCULAR VOLUME 83.1 fl (80.0-96.0); PLATELET COUNT, AUTOMATED 300 10^3/uL (150-450); RED BLOOD COUNT 4.56 10^6/uL (4.00-5.40); WHITE BLOOD COUNT 6.8 10^3/uL (4.0-10.0)
[2021-12-16] MEDS ORDERED: BUPIVACAINE HCL 0.25% 10ML VIAL As Ordered ONE (10:17)
[2021-12-16] MEDS ORDERED: fentaNYL 250 MCG/5 ML INJECTION As Ordered ONE (11:07)
[2021-12-16] MEDS ORDERED: ROCURONIUM BROMIDE 50 MG/5 ML VIAL As Ordered ONE (11:07)
[2021-12-16] MEDS ORDERED: ONDANSETRON 4MG 2ML VIAL As Ordered ONE (11:07)
[2021-12-16] MEDS ORDERED: propofoL 200 MG/20 ML VIAL As Ordered ONE ×2 (11:07→12:52)
[2021-12-16] MEDS ORDERED: HYDROmorphone HCL 2MG/ML 1ML VIAL As Ordered ONE (11:07)
[2021-12-16] MEDS ORDERED: SUGAMMADEX SODIUM 500 MG/5 ML VIAL (BRIDION) As Ordered ONE (11:07)
[2021-12-16] MEDS ORDERED: ACETAMINOPHEN 1000MG 100ML IV BTL (OFIRMEV) (J0131 PER 10MG) As Ordered ONE (11:07)
[2021-12-16] MEDS ORDERED: dexameTHASONE 4 MG/ML 1ML VIAL (J1100 PER 1MG) As Ordered ONE (11:07)
[2021-12-16] MEDS ORDERED: KETOROLAC 60MG 2ML VIAL As Ordered ONE (11:07)
[2021-12-16] MEDS ORDERED: LIDOCAINE 2% 100MG/5ML SDV (FOR ANES.) As Ordered ONE (11:07)
[2021-12-16] MEDS ORDERED: METOCLOPRAMIDE INJ 10MG/2ML VIAL (J2765 PER 1) As Ordered ONE (11:07)
[2021-12-16] MEDS ORDERED: MIDAZOLAM INJ 2MG/2ML VIAL (J2250 PER 1MG) As Ordered ONE (11:07)
[2021-12-16] MEDS ORDERED: METOCLOPRAMIDE INJ 10MG/2ML VIAL (J2765 PER 1) IV PRN (12:25)
[2021-12-16] MEDS ORDERED: oxyCODONE 5MG TAB PO PRN (12:25)
[2021-12-16] MEDS ORDERED: fentaNYL 100 MCG/2 ML INJECTION IV PRN (12:25)
[2021-12-16] MEDS ORDERED: HYDROMORPHONE HCL 0.5 MG/ 0.5 ML SYRINGE (J1170 PER 1) IV PRN (12:25)
[2021-12-16] MEDS ORDERED: ONDANSETRON 4MG 2ML VIAL IV PRN (12:25)
[2021-12-16] MEDS ORDERED: LR 1,000 ML IV SCH ×2 (12:25→13:10)
[2021-12-16] MEDS ORDERED: OXYC1TAB23 PO (12:58)
[2021-12-16] MEDS ORDERED: IBUP-1022 PO (13:00)
[2021-12-16] MEDS ORDERED: PERCOCET 5MG/325MG TAB PO PRN (13:10)
[2021-12-16 15:26] VITALS: BP 141/93
[2021-12-16 15:56] VITALS: BP 153/80
[2021-12-16 16:26] VITALS: BP 137/74
[2021-12-16 18:26] VITALS: BP 134/78
== END 2021-12-16 18:51 | disposition home or self-care (01) ==
LOC: M SDC 08:04 → M PED 15:24 → M SDC 18:51
PROVIDERS: ATTEND Specialist
DX: N85.8 Other specified noninflammatory disorders of uterus (principal); E06.3 Autoimmune thyroiditis; E66.01 Morbid (severe) obesity due to excess calories; Z68.30 Body mass index [BMI] 30.0-30.9, adult; D64.9 Anemia, unspecified; J45.20 Mild intermittent asthma, uncomplicated; R00.0 Tachycardia, unspecified; F41.3 Other mixed anxiety disorders; F32.A Depression, unspecified; E11.65 Type 2 diabetes mellitus with hyperglycemia; M54.2 Cervicalgia; E55.9 Vitamin D deficiency, unspecified; M79.671 Pain in right foot; Z88.8 Allergy status to other drugs, medicaments and biological substances; Z91.030 Bee allergy status
CPT/HCPCS: 36415; 58571; 85027; 86850; 86900; 86901; 88307; J0131; J0690; J1100; J1170; J1885; J2250; J2405; J2765; J3010; S2900

== ENCOUNTER → 2022-02-21 | Outpatient (CLI) | payer OTHER, MEDICAID ==
[~2022-02-21] MED LIST changes: +IBUP-1022 PO; -LR 1,000 ML IV SCH; -ceFAZolin SOD 2 GM in IV 1 EA IV ONE
[2022-02-21 11:36] LABS: CHLORIDE LEVEL 101 MMOL/L (98-107); POTASSIUM SERUM 4.4 MMOL/L (3.5-5.1); SODIUM LEVEL 138 MMOL/L (136-145)
[2022-02-21 11:37] LABS: ALBUMIN 3.6 G/DL (3.2-5.2); CARBON DIOXIDE LEVEL 30 MMOL/L (20-31)
[2022-02-21 11:42] LABS: GLUCOSE, FASTING 148 MG/DL (60-100)
[2022-02-21 11:43] LABS: ALT/SGPT 39 U/L (7.0-40); BLOOD UREA NITROGEN 8 MG/DL (9-23); TRIGLYCERIDES LEVEL 209 MG/DL (<150)
[2022-02-21 11:45] LABS: BILIRUBIN,TOTAL 0.4 MG/DL (0.3-1.2); CHOLESTEROL LEVEL 145 MG/DL (<200); CHOLESTEROL RISK RATIO 3.88 (<5); CREATININE FOR GFR 0.56 MG/DL (0.55-1.30); GLOMERULAR FILTRATION RATE > 60.0 (>60); HDL CHOLESTEROL 37.3 MG/DL (>40); LDL CHOLESTEROL 65.9 MG/DL (<100); NON-HDL-C 108 MG/DL; TOTAL PROTEIN 6.7 G/DL (5.7-8.2)
[2022-02-21 12:08] LABS: HEMOGLOBIN A1c 6.8 % (4.0-6.0)
== END ==
LOC: M WUC 08:08
PROVIDERS: ATTEND Internal Medicine Endocrinology, Diabetes & Metabolism
DX: E11.65 Type 2 diabetes mellitus with hyperglycemia (principal); Z79.2 Long term (current) use of antibiotics

== ENCOUNTER → 2022-05-02 | Outpatient (CLI) | payer OTHER, MEDICAID ==
[2022-05-02 12:08] LABS: BASO % 0.3 % (0.0-1.0); EOS # 0.1 10^3/uL (0.0-0.5); EOS % 0.5 % (0.0-3.0); HEMATOCRIT 40.2 % (36.0-47.0); HEMOGLOBIN 13.2 g/dl (12.0-15.5); LYMPH # 1.3 10^3/uL (1.5-5.0); LYMPH % 13.9 % (24.0-44.0); MEAN CORPUSCULAR HEMOGLOBIN 28.1 pg (27.0-33.0); MEAN CORPUSCULAR HGB CONC 32.8 g/dl (32.0-36.5); MEAN CORPUSCULAR VOLUME 85.5 fl (80.0-96.0); MONO # 0.5 10^3/uL (0.0-0.8); MONO % 5.8 % (2.0-8.0); NEUTROPHILS # 7.2 10^3/uL (1.5-8.5); NEUTROPHILS % 78.7 % (36.0-66.0); PLATELET COUNT, AUTOMATED 390 10^3/uL (150-450); WHITE BLOOD COUNT 9.2 10^3/uL (4.0-10.0)
[2022-05-02 12:31] LABS: BLOOD UREA NITROGEN 11 MG/DL (9-23); CALCIUM LEVEL 9.3 MG/DL (8.5-10.1); CARBON DIOXIDE LEVEL 27 MMOL/L (20-31); CHLORIDE LEVEL 99 MMOL/L (98-107); CREATININE FOR GFR 0.54 MG/DL (0.55-1.30); GLOMERULAR FILTRATION RATE > 60.0 (>60); GLUCOSE, FASTING 211 MG/DL (60-100); POTASSIUM SERUM 4.2 MMOL/L (3.5-5.1); SODIUM LEVEL 135 MMOL/L (136-145)
== END ==
LOC: M WUC 09:01
PROVIDERS: ATTEND Physician Assistant
DX: J45.20 Mild intermittent asthma, uncomplicated (principal); Z86.16 Personal history of COVID-19; R06.00 Dyspnea, unspecified; R05.9 Cough, unspecified

== ENCOUNTER → 2023-05-24 | Outpatient (CLI) | payer OTHER, MEDICAID ==
[2023-05-24 17:54] LABS: ALBUMIN 3.6 G/DL (3.2-5.2); ALKALINE PHOSPHATASE 94 U/L (46-116); ALT/SGPT 52 U/L (7.0-40); AST/SGOT 25 U/L (<34); BILIRUBIN,TOTAL 0.4 MG/DL (0.3-1.2); BLOOD UREA NITROGEN 11 MG/DL (9-23); CALCIUM LEVEL 8.8 MG/DL (8.5-10.1); CARBON DIOXIDE LEVEL 30 MMOL/L (20-31); CHLORIDE LEVEL 102 MMOL/L (98-107); CHOLESTEROL LEVEL 166 MG/DL (<200); CHOLESTEROL RISK RATIO 4.72 (<5); CREATININE FOR GFR 0.53 MG/DL (0.55-1.30); FREE T4 0.96 NG/DL (0.89-1.76); GLOMERULAR FILTRATION RATE > 60.0 (>60); GLUCOSE, FASTING 192 MG/DL (60-100); HDL CHOLESTEROL 35.1 MG/DL (>40); LDL CHOLESTEROL 72.7 MG/DL (<100); NON-HDL-C 130.9 MG/DL; SODIUM LEVEL 136 MMOL/L (136-145); THYROID STIMULATING HORMONE 2.174 uIU/ML (0.55-4.78); TOTAL 25(OH) VITAMIN D 14.4 NG/ML (20.0-100.0); TOTAL PROTEIN 6.8 G/DL (5.7-8.2); TRIGLYCERIDES LEVEL 291 MG/DL (<150)
[2023-05-24 17:57] LABS: CREATININE, URINE 90.5 MG/DL; MALB URINE SIEMENS < 3.0 MG/L; MAU/CREAT RATIO 3.3 MCG/MG (0.0-30.0)
== END ==
LOC: M WUC 10:44
PROVIDERS: ATTEND Physician Assistant
DX: E03.9 Hypothyroidism, unspecified (principal); E11.65 Type 2 diabetes mellitus with hyperglycemia; Z79.4 Long term (current) use of insulin; E55.9 Vitamin D deficiency, unspecified

== ENCOUNTER → 2023-08-30 | Outpatient (CLI) | payer OTHER, MEDICAID ==
[~2023-08-30] MED LIST changes: +FLUO-365 PO; -FLUO20CA22 PO
[2023-08-30 14:03] LABS: ALBUMIN 3.6 G/DL (3.2-5.2); ALKALINE PHOSPHATASE 85 U/L (46-116); ALT/SGPT 34 U/L (7.0-40); AST/SGOT 16 U/L (<34); BILIRUBIN,TOTAL 0.6 MG/DL (0.3-1.2); BLOOD UREA NITROGEN 9 MG/DL (9-23); CALCIUM LEVEL 9.4 MG/DL (8.5-10.1); CARBON DIOXIDE LEVEL 32 MMOL/L (20-31); CHLORIDE LEVEL 104 MMOL/L (98-107); CHOLESTEROL LEVEL 147 MG/DL (<200); CREATININE FOR GFR 0.57 MG/DL (0.55-1.30); GLOMERULAR FILTRATION RATE > 60.0 (>60); GLUCOSE, FASTING 140 MG/DL (60-100); HDL CHOLESTEROL 32.6 MG/DL (>40); NON-HDL-C 114.4 MG/DL; POTASSIUM SERUM 3.9 MMOL/L (3.5-5.1); SODIUM LEVEL 138 MMOL/L (136-145); TOTAL PROTEIN 6.6 G/DL (5.7-8.2); TRIGLYCERIDES LEVEL 202 MG/DL (<150)
[2023-08-30 14:05] LABS: FREE T4 1.06 NG/DL (0.89-1.76); THYROID STIMULATING HORMONE 0.679 uIU/ML (0.55-4.78); TOTAL 25(OH) VITAMIN D 27.3 NG/ML (20.0-100.0)
[2023-08-30 14:13] LABS: MAU/CREAT RATIO 3.9 MCG/MG (0.0-30.0)
== END ==
LOC: M WUC 08:46
PROVIDERS: ATTEND Physician Assistant
DX: E11.65 Type 2 diabetes mellitus with hyperglycemia (principal); Z79.4 Long term (current) use of insulin

== ENCOUNTER → 2024-02-14 | Outpatient (REF) | payer OTHER, MEDICAID | LOC: M LAB REF 16:19 | PROVIDERS: ATTEND Physician Assistant | DX: J02.9 Acute pharyngitis, unspecified (principal) ==

== ENCOUNTER → 2024-04-28 | Outpatient (CLI) | payer OTHER, MEDICAID ==
[2024-04-28 11:38] LABS: HEMATOCRIT 38.7 % (36.0-47.0); MEAN CORPUSCULAR HEMOGLOBIN 29.5 pg (27.0-33.0); MEAN CORPUSCULAR HGB CONC 33.6 g/dl (32.0-36.5); PLATELET COUNT, AUTOMATED 365 10^3/uL (150-450); WHITE BLOOD COUNT 6.6 10^3/uL (4.0-10.0)
[2024-04-28 12:08] LABS: ALBUMIN 3.4 G/DL (3.2-5.2); ALKALINE PHOSPHATASE 77 U/L (35-104); ALT/SGPT 30 U/L (7.0-40); AST/SGOT 17 U/L (<34); BILIRUBIN,TOTAL 0.5 MG/DL (0.3-1.2); BLOOD UREA NITROGEN 10 MG/DL (9-23); CALCIUM LEVEL 9.2 MG/DL (8.5-10.1); CARBON DIOXIDE LEVEL 30 MMOL/L (20-31); CHLORIDE LEVEL 105 MMOL/L (98-107); CHOLESTEROL LEVEL 147 MG/DL (<200); CHOLESTEROL RISK RATIO 3.95 (<5); CREATININE FOR GFR 0.56 MG/DL (0.55-1.30); GLOMERULAR FILTRATION RATE > 60.0 (>60); GLUCOSE, FASTING 113 MG/DL (60-100); HDL CHOLESTEROL 37.2 MG/DL (>40); LDL CHOLESTEROL 79.2 MG/DL (<100); NON-HDL-C 109.8 MG/DL; POTASSIUM SERUM 4.3 MMOL/L (3.5-5.1); SODIUM LEVEL 141 MMOL/L (136-145); TRIGLYCERIDES LEVEL 153 MG/DL (<150)
[2024-04-28 12:13] LABS: TOTAL 25(OH) VITAMIN D 32.4 NG/ML (20.0-100.0)
[2024-04-28 12:14] LABS: THYROID STIMULATING HORMONE 0.324 uIU/ML (0.55-4.78)
== END ==
LOC: M WUC 09:03
PROVIDERS: ATTEND Physician Assistant
DX: E55.9 Vitamin D deficiency, unspecified (principal); E03.9 Hypothyroidism, unspecified; Z79.85 Long-term (current) use of injectable non-insulin antidiabetic drugs

== ENCOUNTER → 2024-07-15 | Outpatient (CLI) | payer OTHER, MEDICAID ==
[2024-07-15 12:51] LABS: BASO # 0.1 10^3/uL (0.0-0.2); BASO % 0.9 % (0.0-1.0); EOS # 0.3 10^3/uL (0.0-0.5); EOS % 4.5 % (0.0-3.0); HEMATOCRIT 39.5 % (36.0-47.0); HEMOGLOBIN 13.2 g/dl (12.0-15.5); LYMPH # 1.4 10^3/uL (1.5-5.0); LYMPH % 18.5 % (24.0-44.0); MEAN CORPUSCULAR HEMOGLOBIN 29.2 pg (27.0-33.0); MEAN CORPUSCULAR HGB CONC 33.4 g/dl (32.0-36.5); MEAN CORPUSCULAR VOLUME 87.4 fl (80.0-96.0); MONO # 0.5 10^3/uL (0.0-0.8); MONO % 6.7 % (2.0-8.0); NEUTROPHILS # 5.2 10^3/uL (1.5-8.5); PLATELET COUNT, AUTOMATED 362 10^3/uL (150-450); RED BLOOD COUNT 4.52 10^6/uL (4.00-5.40); WHITE BLOOD COUNT 7.5 10^3/uL (4.0-10.0)
[2024-07-15 13:00] LABS: ALBUMIN 3.7 G/DL (3.2-5.2); ALKALINE PHOSPHATASE 91 U/L (35-104); ALT/SGPT 42 U/L (7.0-40); AST/SGOT 27 U/L (<34); BILIRUBIN,TOTAL 0.4 MG/DL (0.3-1.2); BLOOD UREA NITROGEN 8 MG/DL (9-23); CALCIUM LEVEL 9.2 MG/DL (8.5-10.1); CARBON DIOXIDE LEVEL 30 MMOL/L (20-31); CHLORIDE LEVEL 102 MMOL/L (98-107); CHOLESTEROL LEVEL 155 MG/DL (<200); CHOLESTEROL RISK RATIO 4.25 (<5); CREATININE FOR GFR 0.56 MG/DL (0.55-1.30); GLOMERULAR FILTRATION RATE > 90.0 (>60); GLUCOSE, FASTING 139 MG/DL (60-100); HDL CHOLESTEROL 36.4 MG/DL (>40); LDL CHOLESTEROL 68.6 MG/DL (<100); NON-HDL-C 118.6 MG/DL; SODIUM LEVEL 138 MMOL/L (136-145); THYROID STIMULATING HORMONE 10.474 uIU/ML (0.55-4.78); TOTAL PROTEIN 7.1 G/DL (5.7-8.2); TRIGLYCERIDES LEVEL 250 MG/DL (<150)
[2024-07-15 13:01] LABS: TOTAL 25(OH) VITAMIN D 16.6 NG/ML (20.0-100.0); VITAMIN B12 LEVEL 384 PG/ML (211-911)
[2024-07-15 13:15] LABS: CREATININE, URINE 118.2 MG/DL; MAU/CREAT RATIO 18.6 MCG/MG (0.0-30.0)
== END ==
LOC: M WUC 08:10
DX: E11.65 Type 2 diabetes mellitus with hyperglycemia (principal); Z79.4 Long term (current) use of insulin

== ENCOUNTER → 2024-09-25 | Outpatient (REF) | payer MEDICAID, OTHER ==
[2024-09-25 16:29] LABS: FREE T4 0.9 NG/DL (0.89-1.76)
== END ==
LOC: M LABWUC 14:00
DX: E03.9 Hypothyroidism, unspecified (principal)

== ENCOUNTER → 2024-12-25 | Outpatient (CLI) | payer OTHER ==
[~2024-12-25] MED LIST changes: -IBUP-1022 PO; +IBUP600T42 PO
[2024-12-25 12:52] LABS: BASO # 0.0 10^3/uL (0.0-0.2); BASO % 0.4 % (0.0-1.0); EOS # 0.2 10^3/uL (0.0-0.5); EOS % 3.3 % (0.0-3.0); LYMPH # 1.2 10^3/uL (1.5-5.0); LYMPH % 17.6 % (24.0-44.0); MONO # 0.5 10^3/uL (0.0-0.8); MONO % 7.3 % (2.0-8.0); NEUTROPHILS # 4.7 10^3/uL (1.5-8.5); NEUTROPHILS % 71.0 % (36.0-66.0); PLATELET COUNT, AUTOMATED 320 10^3/uL (150-450)
[2024-12-25 13:17] LABS: CREATININE, URINE 104.4 MG/DL
[2024-12-25 13:19] LABS: FREE T4 1.23 NG/DL (0.89-1.76); MALB URINE SIEMENS 10.0 MG/L; MAU/CREAT RATIO 9.5 MCG/MG (0.0-30.0)
[2024-12-25 13:20] LABS: ALT/SGPT 39 U/L (7.0-40); AST/SGOT 24 U/L (<34); CALCIUM LEVEL 8.6 MG/DL (8.5-10.1); CARBON DIOXIDE LEVEL 29 MMOL/L (20-31); CHLORIDE LEVEL 105 MMOL/L (98-107); CHOLESTEROL LEVEL 109 MG/DL (<200); CHOLESTEROL RISK RATIO 2.99 (<5); CREATININE FOR GFR 0.57 MG/DL (0.55-1.30); GLOMERULAR FILTRATION RATE > 90.0 (>60); LDL CHOLESTEROL 45.6 MG/DL (<100); NON-HDL-C 72.6 MG/DL; POTASSIUM SERUM 4.6 MMOL/L (3.5-5.1); SODIUM LEVEL 138 MMOL/L (136-145); TRIGLYCERIDES LEVEL 135 MG/DL (<150); VITAMIN B12 LEVEL 356 PG/ML (211-911)
[2024-12-25 13:21] LABS: TOTAL 25(OH) VITAMIN D 32.6 NG/ML (20.0-100.0)
== END ==
LOC: M WUC 08:11
DX: E11.65 Type 2 diabetes mellitus with hyperglycemia (principal); E03.9 Hypothyroidism, unspecified; Z79.4 Long term (current) use of insulin

== ENCOUNTER → 2025-01-09 | Outpatient (CLI) | payer OTHER ==
[2025-01-09 18:09] LABS: FREE T4 1.39 NG/DL (0.89-1.76)
== END ==
LOC: M WUC 14:11
DX: E03.9 Hypothyroidism, unspecified (principal)